=== PATIENT | male | born 1955 | race Caucasian/White ===

== ENCOUNTER → 2017-10-14 | Day surgery (SDC) | payer OTHER ==
[~2017-10-14] VITALS: Ht 167.6 cm; Wt 103.9 kg
[~2017-10-14] MED LIST: CENTRUM SILVER1 EAC3 PO; CYCLOBENZAPRINE5 M2 PO; LISINOPRIL-HCT1 EAC2 PO; MOVE FREE JOIN1 EACH PO; PERCOCET 5-3251 EACH PO; TAMSULOSIN HCL0.4 M1 PO; VITAMIN D32000 UNI1 PO
--- NOTE | 2017-10-14 10:19 | Operative Report ---
Operative/Inv Procedure Report Surgery Date: 10/14/17 Name of Procedure: Right knee arthroscopy, partial medial meniscectomy, may's cyst aspiration Pre-Operative Diagnosis: Right knee medial meniscus tear Post-Operative Diagnosis: Right knee medial meniscus tear, early degenerative joint disease, May's cyst Estimated Blood Loss: less than 50ml Surgeon/Clinical Systems Educator: Abdon Estrada MD Anesthesia: laryngeal mask airway Complications: None Condition: Stable to PACU Operative Indication: This is a 62-year-old male with long-standing right knee pain that has failed conservative care. Risks and benefits of the procedure were discussed with the patient at length. Risks include but are not limited to nerve damage, muscle damage, infection, blood loss, blood clots, pulmonary embolus, and even . The patient agreed to the above risks and elected to proceed with surgery. Operative/Procedure Note Note: The patient was placed supine on the operating room table. A tourniquet was applied. The lower extremity prepped and draped in normal sterile fashion. A timeout was performed before the incision. The site marking was visualized before incision. After the leg was prepped and draped, an Esmarch was used to exsanguinate the extremity. The tourniquet was inflated. A standard inferolateral portal was established with an 11 blade. The camera was inserted. A medial portal was established with a spinal needle and an 11 blade. The diagnostic arthroscopy was then performed which showed the above findings. A combination of a straight biter as well as an upbiter was used to debride the body and posterior horn of the medial meniscus. A shaver was used to complete the debridement. There was a tear through the root which was also debrided. A spinal needle was then used to aspirate the May's cyst of 10 mL of straw- colored fluid. The knee was copiously irrigated. The portal sites were closed with 3-0 nylon suture in a simple interrupted fashion. The knee was injected with 10 mL of 0.25% Marcaine with epinephrine. A dry sterile dressing was applied and the patient was transferred to PACU in stable condition. Findings: [employer] sterile body and posterior horn the medial meniscus. Extensive chondral changes of the medial femoral condyle with grade 4 chondral changes of the weightbearing surface. Medial tibial plateau with grade 2 chondral changes. ACL intact. PCL intact. Lateral meniscus intact. Grade 1 chondral softening of the lateral femoral condyle and lateral tibial plateau. Grade 4 chondral changes on the undersurface of the patella. Trochlea with grade 3 chondral changes.
== END ==
LOC: STS 02:12
DX: M23.203 Derangement of unspecified medial meniscus due to old tear or injury, right knee (principal); M71.21 Synovial cyst of popliteal space [Baker], right knee; M19.90 Unspecified osteoarthritis, unspecified site; I10 Essential (primary) hypertension; F17.200 Nicotine dependence, unspecified, uncomplicated
CPT/HCPCS: J0690